=== PATIENT | female | born 1985 | race Caucasian/White ===

== ENCOUNTER 2022-10-26 10:26 | Emergency (ER) | payer OTHER, SELFPAY ==
[2022-10-26 10:34] VITALS: BP 147/78; PULSE 100; RESP 20; TEMP 36.8; O2SAT 98
[2022-10-26 10:40] VITALS: BP 147/78; PULSE 100; RESP 20; TEMP 36.8; O2SAT 98
--- NOTE | 2022-10-26 10:53 | ED.URI ---
HPI - URI/Sore Throat General Chief Complaint: Upper Respiratory Infection Stated Complaint: throat fever Time Seen by Provider: 10/26/22 10:53 Source: patient and RN notes reviewed History of Present Illness HPI Narrative: patient is a 36-year-old female who presents to the Urgent Care with complaints of a fever that started today and sore throat yesterday. Patient has been taking ibuprofen for the fever. Denies any body aches, cough, nausea, vomiting, headache or ill exposures. No other acute complaints. No acute distress noted. Patient aware of the plan of care. Some parts of this dictation were generated by voice recognition software and may contain typographical and/or grammatical inaccuracies. Related Data Home Medications Medication Instructions Recorded Confirmed No Home Medications 10/26/22 10/26/22 Allergies Allergy/AdvReac Type Severity Reaction Status Date / Time No Known Allergies Allergy Verified 10/26/22 10:39 Review of Systems Review of Systems: CONSTITUTIONAL: Reports a fever this morning EYES: Denies visual changes, redness, or discharge. ENT: Denies rhinorrhea, congestion, otalgia. Reports of sore throat and drainage CARDIOVASCULAR: Denies chest pain, palpitations, or edema. RESPIRATORY: Denies cough or dyspnea. GASTROINTESTINAL: Denies abdominal pain, nausea, vomiting, or diarrhea. GENITOURINARY: Denies dysuria or hematuria. SKIN: Denies rash or itching. MUSCULOSKELETAL: Denies back pain, joint pain, or myalgia. NEUROLOGIC: Denies headache, numbness, or weakness. All other systems reviewed are negative, except as documented in HPI. PMFSH Comments At the time of my signature, I reviewed and agree with the nursing past medical, surgical, social, and family history. There is no relevant family history pertinent to the patient complaint. Exam Narrative: GENERAL: This is a well-nourished, well-developed patient, in no apparent distress. HEAD: normocephalic, atraumatic. EYES: PERRL. Sclera clear/white. Vision is grossly intact. EARS: External ears normal, auditory canals clear and without drainage, TMs normal without perforation. Hearing grossly intact. NOSE: External nose normal with no obvious nasal discharge, nares without redness, no rhinorrhea. THROAT: Mucous membranes moist, mild erythema to posterior pharynx with moderate postnasal drainage. Absent tonsils. NECK: Neck supple, non-tender without lymphadenopathy CARDIOVASCULAR: Regular rate and rhythm without murmurs, gallops, or rubs. RESPIRATORY: Clear to auscultation. Breath sounds equal bilaterally. No wheezes, rales, or rhonchi. SKIN: warm, intact with no suspicious lesions or rash, good texture and turgor. NEURO: awake, alert, and oriented to person, place and time. There were no obvious focal neurologic abnormalities. EXTREMITIES: No clubbing, cyanosis, or edema. Course Course Level of Care: Express Care Visit Vital Signs Vital signs: Vital Signs Temperature 98.2 F 10/26/22 10:34 Pulse Rate 100 10/26/22 10:34 Respiratory Rate 20 10/26/22 10:34 Blood Pressure 147/78 H 10/26/22 10:34 Pulse Oximetry 98 10/26/22 10:34 Oxygen Delivery Room Air 10/26/22 10:34 Temperature 98.2 F 10/26/22 10:40 Pulse Rate 100 10/26/22 10:40 Respiratory Rate 20 10/26/22 10:40 Blood Pressure 147/78 H 10/26/22 10:40 Pulse Oximetry 98 10/26/22 10:40 Oxygen Delivery Room Air 10/26/22 10:40 reviewed- Patient is informed that they may have pre-hypertension or hypertension based on a blood pressure reading in the department. I recommend the patient call the primary care provider listed on their discharge instructions or a physician of their choice this week to arrange follow-up for further evaluation of possible pre-hypertension or hypertension. MDM - URI/Sore Throat MDM Narrative Medical decision making narrative: Due to the lack of resources, unable to complete a rapid strep and the facility. We
== END 2022-10-26 11:07 | disposition home or self-care (01) ==
PROVIDERS: Emergency Provider Nurse Practitioner Family; PCP Physician Assistant
DX: J02.0 Streptococcal pharyngitis (principal)
CPT/HCPCS: 87081; 87147; 99202; G0463

== ENCOUNTER 2025-01-29 11:20 | Emergency (ER) | payer OTHER, SELFPAY ==
--- OUTSIDE RECORDS SUMMARY | 2025-01-29 11:23 | XMS_ITS | Referral Summary ---
Author Organization [facility] Medical Office Building [address] Address [address] [place] [address] Care Team Providers Care Manager Bank Name Role Phone Uzair Morales Primary Care Provider [phone] Allergies No known active allergies Medications multivitamin capsule Take 1 capsule by mouth daily Active vitamin B complex capsule Take 1 capsule by mouth daily Active calcium carbonate-vitam in D3 500 mg(1,250mg) -400 unit chewable tablet Take 1 tablet by mouth daily Active naproxen (NAPROSYN) 500 mg tablet Take 1 tablet (500 mg total) by mouth 2 (two) times a day with meals 30 tablet 04/12/2024 Active Active Problems Problem Noted Date Diagnosed Date Upper respiratory infection 12/17/2022 Closed displaced fracture of proximal phalanx of right little finger 02/02/2022 Sprain of medial collateral ligament of left kne e 02/19/2021 Atypical squamous cells of u ndetermined significance (ASCUS) on Papanicolaou smear of cervix 12/01/2017 Overview (06/02/2024): Atyp squam cell of undet signfc cyto smr crvx (ASC-US);Recorded Elsewhere: No Location: [facility] Source: EHR Chronic: N Practice ID: [id number] Billable Time: 04:15:00 PM Low-risk human papillomaviru s (HPV) DNA detected in cervical specimen 11/10/2017 Overview (06/02/2024): Cervical low risk HPV DNA test positive;Recorded Elsewhere: No Location: [facility] Source: EHR Chronic: N Practice ID: [id number] Billable Time: 04:45:00 PM Obesity with body mass index 30 or greater 04/01 Overview (06/02/2024): Body mass index (BMI) 33.0-33.9, adult;Recorded Elsewhere: No Location: [facility] Source: EHR Chronic: N Practice ID: [id number] Billable Time: 06:00:00 PM Chronic depression 09/22/2016 Delivery normal 08/10/2013 Overview (06/02/2024): Normal delivery;Practice ID: [id number] Congenital malformation 04/07/2013 Overview (06/02/2024): screening for malformation using ultrasonics;Practice ID: [id number] Amenorrhea 02/15/2013 Overview (06/02/2024): AMENORRHEA;Practice ID: [id number] Social History Tobacco Use Types Packs/Day Years Used Date Smoking Tobacco: Never Smokeless Tobacco: Never AUDIT-C Answer Date Recorded Q1: How often do you have a drink containing alc ohol? Monthly or less 02/19/2021 Average Number of Drinks Not on file 021 Frequency of Binge Drinking Not on file 01/23 Personal Safety Answer Date Recorded Have you ever been in or are you currently in a harmful physical or emotional relationship or is someone making you feel afraid or unsafe? Denies 04/12/2024 Comments No Sex and Gender Information Value Date Recorded Sex Assigned at Not on file Legal Sex Female 2:19 PM [employer]VENUE Gender Identity Not on file Sexual Orientation Not on file Last Filed Vital Signs Vital Sign Reading Time Taken Comments Blood Pressure 99/52 04/12/2024 8:57 PM CDT Pulse 50 04/12/2024 8:57 PM CDT Temperature 36.4 C (97.6 F) 04/12/2024 6:47 PM CDT Respiratory Rate 16 04/12/2024 8:57 PM CDT Oxygen Saturation 98% 04/12/2024 8:57 PM CDT Inhaled Oxygen Concentration - - Weight 88 kg (194 lb) 04/12/2024 6:47 PM CDT Height 167.6 cm (5' 6 ) 04/12/2024 6:47 PM CDT Body Mass Index 31.31 04/12/2024 6:47 PM CDT Plan of Treatment Not on file Insurance [facility] H[facility]/PPO Address: [id number] [place] [address] [facility]PPO Address[facility] [address] [place] [address] [facility]/PPO Address: [facility] [id number] [place], [place] [id number] Care Teams Manager Bank Relationship Specialty Start Date End Date Uzair Morales PA [address] [place] [address] PCP - General 01/10/19
--- OUTSIDE RECORDS SUMMARY | 2025-01-29 11:23 | XMS_ITS | Data Portability ---
Author Organization [facility] L[facility] D Pak Address [address] [place] [address] Care Team Providers Care Test Architect Name Role Phone KERRY MORALES Primary Care Provider Assessment No assessment recorded. Plan of Treatment Reminders Order Date Submit Date Provider Last Modified By Organization Details Last Modified Time Details Appointments None recorded. Lab influenza virus A + B + SARS-CoV- 2 (COVID19) Ag panel, rapid IA, upper respirato ry specimen 2023 024 [facility] In-Office Order, Internal Use Only DO Not Attach Compendium DO Not Attach Compendium, Do Not Delete/merge, [id number] 11:48:48 rapid strep group A, throat 2022 023 shant In-Office Order, Internal Use Only DO Not Attach Compendium DO Not Attach Compendium, Do Not Delete/merge, [id number] 15:53:23 Referral None recorded. Procedures None recorded. Surgeries None recorded. Imaging None recorded. Medication Orders escitalop tete 20 mg tablet 2024 025 [facility] #[id number], [address], [place], [place], [id number], 5 12:54:55 azithromy luci 500 mg tablet 2024 025 [facility] #65708, [address], [place], [place], [id number], 5 12:53:43 amoxicill in 875 mg tablet 2023 025 [facility] #08289, [address], [place], [id number], 5 12:24:51 neomycin- polymyxin -dexameth 3.5 mg/mL-10, 000 unit/mL-0 .1% eye drops 2023 024 [facility] #81230, [address], [place], [id number], 4 11:25:21 amoxicill in 875 mg tablet 2022 023 [facility] #13960, [address], [place], [id number], 5 12:24:38 neomycin- polymyxin -dexameth 3.5 mg/mL-10, 000 unit/mL-0 .1% eye drops 2021 022 [facility] #[id number], [address], [place], [id number], 4 11:25:21 Patient TargetsNo targets recorded. Patient Instructions Encounter Date Encounter Id Patient Instructions Last Modified By Organization Details Last Modified Time 02/06/2023 [id number] strep throat: care instructions jnanney Not available 02/06/2023 15:54:10 A healthy lifestyle: care instructions jnanney Not available 02/06/2023 15:55:33 01/27/2024 [id number] A healthy lifestyle: care instructions jnanney Not available 01/27/2024 12:33:11 pinkeye: care instructions jnanney Not available 01/27/2024 12:33:11 05/16/2024 [id number] A healthy lifestyle: care instructions jnanney Not available 05/16/2024 11:47:04 upper respirator y infection (cold): care instructions jnanney Not available 05/16/2024 11:34:27 01/05/2025 [id number] A healthy lifestyle: care instructions jnanney Not available 01/05/2025 12:32:47 upper respirator y infection (cold): care instructions jnanney Not available 01/05/2025 12:32:47 sore throat: car e instructions jnanney Not available 01/05/2025 12:32:47 Reason for Referral None Reported. Results Created Date Observation Date Name Description Value Unit Range Abnormal Flag Note LastModifiedBy Organization Detail LastModifiedTime 02/07/2002/06/2023 rapid strep group A, throa t Strep positi ve Not Available In-Office Order Internal Use Only DO Not Attach Compendium DO Not Attach Compendium, Do Not Delete/merge, [id number] 02/06/2023 15:32:43 05/16/20 24 05/16/2024 influ kelvin virus A + B + SARS- CoV-2 (COVI D19) Ag panel , rapid IA, upper respi rator y speci men Flu A negati ve Not Available In-Office Order Internal Use Only DO Not Attach Compendium DO Not Attach Compendium, Do Not Delete/merge, [id number] 05/16/2024 11:34:20 05/16/2005/16/2024 influ kelvin virus A + B + SARS- CoV-2 (COVI D19) Ag panel , rapid IA, upper respi rator y speci men Flu B negati ve Not Available In-Office Order Internal Use Only DO Not Attach Compendium DO Not Attach Compendium, Do Not Delete/merge, [id number] 05/16/2024 11:34:20 05/16/2005/16/2024 influ kelvin virus A + B + SARS- CoV-2 (COVI D19) Ag panel , rapid IA, upper respi rator y speci men Rapid SARS CoV 2 Ag, QL IA, respiratory specimen negati ve Not Available In-Office Order Internal Use Only DO Not Attach Compendium DO Not Attach Compendium, Do Not Delete/merge, [id number] 05/16/2024 11:34:20 Result Notes None recorded. Problems Name Problem SNOMED Code Status Onset Date Resolution Date Notes Provider Name and Address Organization Details Recorded Time Upper respiratory infection 27214521 Active Kerry Morales PA-C Attn: Rell swain,[address] [facility], [place], [address], [facility] 5 15:15:15 Chronic depression 179975208 Active 2015 Kerry Morales PA-C Attn: Rell g,[address] [facility], [place], [address], [facility] 6 16:48:16 Problem Notes None recorded. Procedures Surgical History Date Name Laterality Status Provider Name and Address Organization Details Recorded Time 06/23/20 Date of Last Pap Smear completed Kenia Núñez [place] - [facility] 10/29/2022 16:13:14 Tonsillectomy completed Kenia Pastrana [place] - [facility] 03/06/2015 15:06:31 Imaging Results None recorded. Procedure Notes None recorded. Medical Equipment None Reported. Allergies No known drug allergies Medications Name Sig Start Date Stop Date Status Note LastModified by Organization Details LastModified Time buspirone 5 mg tablet TAKE 1 TABLET BY MOUTH TWICE DAILY 01/26 completed not taking Not Available Not Available Not Available bupropion HCl SR 150 mg tablet,12 hr sustained- release Take 1 tablet twice a day by oral route for 30 days. 05/11 completed Not Available Not Available Not Available metronidaz ole 0.75 % (37.5 mg/5 gram) vaginal gel INSERT ONE APPLICAT ORFUL VAGINALL Y AT BEDTIME FOR 5 NIGHTS 02/06 completed Not Available Not Available Not Available metronidaz ole 500 mg tablet TK 1 T PO Q 12 H FOR 7 DAYS 04/30 completed Not Available Not Available Not Available amoxicilli n 500 mg tablet 02/06 completed Not Available Not Available Not Available amoxicilli n 875 mg tablet TAKE 1 TABLET BY MOUTH EVERY 12 HOURS FOR 10 DAYS 01/05 completed Not Available Not Available Not Available citalopram 20 mg tablet TAKE 1 TABLET BY MOUTH EVERY DAY 03/30 completed Not Available Not Available Not Available ciprofloxa luci 0.3 % eye drops 3 drops to affected eye tid for 7 days 03/30 completed Not Available Not Available Not Available cephalexin 500 mg capsule Take 1 capsule every 8 hours by oral route for 10 days. 11/04 completed Not Available Not Available Not Available neomycin-p olymyxin-d exameth 3.5 mg/mL-10,0 00 unit/mL-0. 1% eye drops INSTILL 1 DROP INTO AFFECTED EYE(S) BY OPHTHALM IC ROUTE EVERY 3-4 HOURS 05/16 completed Not Available Not Available Not Available Cipro 500 mg tablet Take 1 tablet every 12 hours by oral route for 10 days. 04/30 completed Not Available Not Available Not Available sertraline 50 mg tablet Take 1 tablet every day by oral route for 30 days. 04/13 completed Not Available Not Available Not Available ipratropiu m bromide 21 mcg (0.03 %) nasal spray USE 2 SPRAYS IN EACH NOSTRIL THREE TIMES DAILY active Not Available Not Available No t Available naproxen 500 mg tablet 05/16 completed Not Available Not Available Not Available amoxicilli n 875 mg-potassi um clavulanat e 125 mg tablet TAKE 1 TABLET BY MOUTH IN THE MORNING AND AT BEDTIME FOR 7 DAYS 02/06 completed Not Available Not Available Not Available NuvaRing 0.12 mg-0.015 mg/24 hr vaginal 02/06 completed Not Available Not Available Not Available azithromyc in 500 mg tablet TAKE 1 TABLET BY MOUTH EVERY DAY FOR 3 DAYS active Not Available Not Available No t Available escitalopr am 20 mg tablet TAKE 1 TABLET BY MOUTH EVERY DAY active Not Available Not Available No t Available Vitals Date Recorded Body weight Body temperature Oxygen saturation Oxygen saturation in Arterial blood by Pulse oximetry Heart rate Body height Body mass index (BMI) Systolic blood pressure Diastolic blood pressure Provider Name and Address Organization Details Last Updated DateTime 2 47044.1 7 g 98.4 [degF] 98 % 98 % 85 /min 167.64 cm 34.4 kg/m2 110 mm[Hg] 70 mm[Hg] Kenia pitt [place] - [facility] 2 16:12:45 Date Recorded Body height Body mass index (BMI) Body weight Body temperature Oxygen saturation Oxygen saturation in Arterial blood by Pulse oximetry Heart rate Systolic blood pressure Diastolic blood pressure Provider Name and Address Organization Details Last Updated DateTime 3 167.64 cm 34.2 kg/m2 02031.1 5 g 98 [degF] 97 % 97 % 77 /min 114 mm[Hg] 80 mm[Hg] Maddison Roy MA [facility] 3 15:11:24 Date Recorded Body height Body mass index (BMI) Body weight Heart rate Oxygen saturation Oxygen saturation in Arterial blood by Pulse oximetry Systolic blood pressure Diastolic blood pressure Provider Name and Address Organization Details Last Updated DateTime 4 167.64 cm 31.5 kg/m2 11511.6 1 g 59 /min 99 % 99 % 105 mm[Hg] 71 mm[Hg] Maame Hernandez MA [facility] 4 12:04:21 Date Recorded Body height Body mass index (BMI) Body weight Oxygen saturation Oxygen saturation in Arterial blood by Pulse oximetry Heart rate Body temperature Systolic blood pressure Diastolic blood pressure Provider Name and Address Organization Details Last Updated DateTime 4 167.64 cm 32 kg/m2 25343.7 3 g 97 % 97 % 85 /min 99.6 [degF] 107 mm[Hg] 73 mm[Hg] Lucía Torres MA [facility] 4 11:27:08 Date Recorded Body height Body mass index (BMI) Body weight Oxygen saturation Oxygen saturation in Arterial blood by Pulse oximetry Heart rate Respiratory rate Body temperature Systolic blood pressure Diastolic blood pressure Provider Name and Address Organization Details Last Updated DateTime 5 167.64 cm 31.6 kg/m2 22084.1 g 98 % 98 % 81 /min 16 /min 98.5 [degF] 116 mm[Hg] 78 mm[Hg] Lucía Torres MA [facility] 5 12:26:53 Social History Question Answer Notes LastModified by Organizat ion Details LastModified Time Tobacco Smoking Status Never Smoker Kenia Pastrana MA [facility], [facility] 03/06/2015 15:06:31 What Is Your Level Of Alcohol Consumption? Occasional Information not available 01/10/2019 Are You Blind Or Do You Have Difficulty Seeing? Yes Glasses Information not available 02/06/2023 What Is Your Level Of Caffeine Consumption? Heavy [email or web address] Information not available 10/29/2022 How Much Tobacco Do You Chew? None Information not available 01/10/2019 In The 14 Days Before Symptom Onset, Have You Had Close Contact With A Laboratory-confi rmed COVID-19 While That Case Was Ill? No Information not available 04/30/2021 In The 14 Days Before Symptom Onset, Have You Had Close Contact With A Person Who Is Under Investigation For COVID-19 While That Person Was Ill? No Information not available 04/30/2021 Have You Been To An Area Known To Be High Risk For COVID-19? No Information not available 04/30/2021 Are You Currently Employed? Yes Information not available 04/30/2021 Are You Deaf Or Do You Have Serious Difficulty Hearing? No Information not available 05/14/2021 What Type Of Diet Are You Following? REGULAR [employer] [facility] Information not available 02/06/2023 Which Illicit Or Recreational Drugs Have You Used? 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 No Information not available 05/14/2021 What Was The Date Of Your Most Recent Tobacco Screening? 01/05/2025 Information not available 01/05/2025 What Is Your Relationship Status? Information not available 04/30/2021 Do You Use Your Seat Belt Or Car Seat Routinely? Yes Information not available 05/14/2021 Do You Have Smoke And Carbon Monoxide Detectors In Your Home? Yes Information not available 04/30/2021 Are You Passively Exposed To Smoke? Yes Information not available 04/30/2021 How Much Tobacco Do You Smoke? No Information not available 05/19/2019 Do You Feel Stressed (tense, Restless, Nervous, Or Anxious, Or Unable To Sleep At Night)? [id number] Information not available 02/06/2023 Do You Use Any Illicit Or Recreational Drugs? No Information not available 04/30/2021 Has Tobacco Cessation Counseling Been Provided? No Information not available 05/19/2019 On What Date Was Tobacco Cessation Counseling Provided? 01/05/2025 Information not available 01/05/2025 How Many Years Have You Smoked Tobacco? 0 Information not available 05/19/2019 Do You Or Have You Ever Used Any Other Forms Of Tobacco Or Nicotine? No Information not available 04/30/2021 Sex: Female Functional Status Question Answer Note LastModified by Organizat ion Details LastModified Time Are you able to care for yourself? Yes Information not available 04/30/2021 What is your exercise level? Moderate 2 - 3 x's weekly Information not available 02/06/2023 Mental Status None recorded. Family History Relationship Description Onset Age of this Age Resolved Age Notes LastModified by Organization Details LastModified Time Mother Depressive disorder [email or web address] Not available 2014 15:06:31 Mother Disorder of thyroid gland jweichert Not available 2014 15:06:31 Sister Migraine jweichert Not availabl e 03/06/2015 15:06:31 Medical History Condition Response Coronary Artery Disease N Other N Atrial Fibrillation N High Blood Pressure N Depression Y COPD N Blood Clots N Anxiety Disorder N Muscle, Joint, or Bone Problems N Acid Reflux (GERD) N Cancer N Stroke N Headaches Y Kidney or Bladder Problems N Skin Problems N Asthma N Allergies Y Hepatitis N High Cholesterol N Liver Disease N Thyroid Problems N GI Problems N Anemia N Heart Attack (NV) N Diabetes N Seizures/Epilepsy N Heart Failure N Osteoporosis N Gynecological History Statement/Question Response Date of Last Pap Smear 06/23/2022 Date of LMP 05/10/2024 Obstetrics History GPAL:G 0 P 0 0 0 0 Immunizations Vaccine Type Date Status Note Provider Nam e and Address Organization Details Recorded Time influenza, unspecified formulation 8 completed Not Available [facility] 10/26/2022 12:18:28 Tdap 3 completed Not Available [facility] 10/26/2022 12:18:28 COVID-19, mRNA, LNP-S, PF, 100 mcg/0.5mL dose or 50 mcg/0.25mL dose 1 completed Not Available [facility] 10/26/2022 12:18:28 COVID-19, mRNA, LNP-S, PF, 100 mcg/0.5mL dose or 50 mcg/0.25mL dose 1 completed Not Available [facility] 10/26/2022 12:18:28 Past Encounters Encounter ID Performer Location Encounter Start Date Encounter Closed Date Diagnosis/Indication Diagnosis SNOMED-CT Code Diagnosis ICD10 Code Diagnosis Note [id number] Lexis Torres [facility] [address] [place] [address] 03/06/2015 14:58:48 03/06/2015 15:21:12 Upper respiratory infection 21520663 [id number] Kerry Morales PA-C [facility] [address] [place] [address] 09/22/2016 15:15:52 09/22/2016 16:57:02 Chronic depression 114014621 F34.1 [id number] Kerry Morales PA-C [facility] [address] [place] [address] 12/31/2017 16:34:50 12/31/2017 17:51:36 Acute maxillary sinusitis 24511635 J01.01 [id number] Kerry Morales PA-C [facility] [address] [place] [address] 02/08/2018 15:15:44 02/08/2018 16:35:40 Conjunctivitis of bilateral eyes caused by bacteria 1609960326 4082951 H10.023 Chronic depression 97972 0009 F34.[id number] MA [facility] [address] [place] [address] 03/09/2018 18:34:51 03/09/2018 19:40:38 Chronic depression 851685713 F34.1 [id number] Kerry Morales PA-C [facility] [address] [place] [address] 03/23/2018 18:09:47 03/23/2018 19:20:50 Chronic depression 257228141 F34.1 [id number] GUTIERREZ [facility] [address] [place] [address] 03/30/2018 18:31:04 03/30/2018 19:42:50 Chronic depression 500956108 F34.1 [id number] Kerry Morales PA-C [facility] [address] [place] [address] 04/13/2018 18:35:12 04/13/2018 19:12:19 Chronic depression 059104866 F34.1 [id number] Kerry Morales PA-C [facility] [address] [place] [address] 04/27/2018 18:26:30 04/27/2018 19:56:02 Chronic depression 487857292 F34.1 [id number] Kerry Morales PA-C [facility] [address] [place] [address] 05/11/2018 18:18:59 05/11/2018 18:42:15 Chronic depression 332109472 F34.1 [id number] Kerry Morales PA-C [facility] [address] [place] [address] 08/17/2018 18:33:36 08/17/2018 18:51:18 Chronic depression 716010293 F34.1 [id number] Kerry Morales PA-C [facility] [address] [place] [address] 01/10/2019 10:00:03 01/10/2019 11:01:43 Elbow joint - painful on movement 530998709 M25.522 Adult heal th examination 274862386 Z00.00 [id number] Kerry Morales PA-C 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 [address] [place] [address] 05/19/2019 14:37:55 05/19/2019 16:12:15 Acute pharyngitis 207191343 J02.0 [id number] Kerry Morales PA-C [facility] [address] [place] [address] 11/04/2019 16:00:03 11/09/2019 11:27:30 Upper respiratory infection 84960624 J01.01 [id number] Kerry Morales PA-C 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 [address] [place] [address] 05/14/2021 17:46:14 05/15/2021 22:37:19 Chronic depression 381597762 F34.1 [id number] Kerry Morales PA-C [facility] [address] [place] [address] 10/29/2022 15:56:19 10/29/2022 16:29:32 Acute conjunctivitis of right eye 9778933875 46808 H10.31 [id number] Kerry Morales PA-C [facility] [address] [place] [address] 02/06/2023 14:53:12 02/11/2023 11:45:15 Viral syndrome 219465942 B34.9 Streptococ joan sore throat 65460893 J02.0 Overweight 078619907 E66 .3 [id number] Kerry Morales PA-C [facility] [address] [place] [address] 01/27/2024 11:52:13 02/01/2024 15:33:55 Bacterial conjunctivitis 918606855 H10.011 Overweight 139316837 E66 .3 [id number] Kerry Morales PA-C [facility] [address] [place] [address] 05/16/2024 11:13:11 05/19/2024 19:50:05 Upper respiratory infection 72206659 J01.01 Streptococ joan sore throat 82296844 J02.0 Overweight 981295119 E66 .3 [id number] GUTIERREZ [facility] [address] [place] [address] 01/05/2025 12:11:20 01/09/2025 15:08:33 Upper respiratory infection 76807489 J01.01 Acute pharyngitis 743578 003 J02.0 Overweight 076895942 E66 .3 Chronic depression 72042 0009 F34.1 Health Concerns Section Related Observation LastModified by Organization Detai ls LastModified Time None Recorded Concern Status LastModified by Organization Details LastModified Time None Recorded Advance Directives Directive None Recorded Payers Encounter Date Sequence Insurance Name Policy Number Policy Baca Covered Member ID Baca Member ID Guarantor Name 10/29/2022 1 [facility] [id number] Andressa Pace [id number] Andressa Pace 02/06/2023 1 [facility] [id number] Andressa Pace [id number] Andressa Pace 01/27/2024 1 [facility] [id number] Andressa Pace [id number] Andressa Pace 05/16/2024 1 [facility] [id number] Andressa Pace [id number] Andressa Pace 01/05/2025 1 [facility] [id number] Andressa Pace [id number] Andressa Pace Notes Date Note Type Note Provider Name and Address Organization Details Recorded Time 10/29/2022 text/html has pink eye on top of strep Kerry Morales PA-C Attn: Accounting,[address] [place], [address], [facility] 10/29/2022 16:24:46 02/06/2023 text/html sore throat for 3 days...strep test going right now Kerry Morales PA-C Attn: [address]ing,[address] [place], [address], [facility] 02/06/2023 15:56:11 01/27/2024 text/html rt eye itchy somewhat swollen discharge...kate le better today... Kerry Morales PA-C Attn: Accounting,[address] [place], [address], [facility] 01/27/2024 12:33:42 05/16/2024 text/html has started with aches and chills and fever... Kerry Morales PA-C Attn: Accounting,[address] [facility], [place], [address], [facility] 05/16/2024 11:47:50 01/05/2025 text/html daughter had flu twice..she developed flu symptoms ...no treatment..now has very sore throat...also would like to resume lexapro Keryr Morales PA-C Attn: Accounting,[address] [facility], [place], [address], [facility] 01/05/2025 12:55:27 OBGyn Episode No OBEpisode recorded.
--- OUTSIDE RECORDS SUMMARY | 2025-01-29 11:23 | XMS_ITS | Data Portability ---
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 Patient will come back in a year unless there are new symptoms. [email or web address] Not available 10/11/2020 13:44:56 04/10/2022 04/10/2022 Annual gynecological exam performed. Patient will come back in a year unless there are new symptoms. Not available 04/10/2022 16:23:03 07/29/2024 07/29/2024 Annual gynecological exam performed. Patient will come back in a year unless there are new symptoms. [email or web address] Not available 07/29/2024 15:46:54 Plan of Treatment Reminders Order Date Submit Date Provider Last Modified By Organization Details Last Modified Time Details Appointments None recorded. Lab HbA1c (hemoglobi n A1c), blood 2021 [facility] (Lab), [address], [place], [address], 04:55:11 vitamin D, 25-hydroxy , total, serum 2021 [facility] (Lab), [address], [place], [address], 04:55:15 lipid panel, blood 2021 [facility] (Lab), [address], [place], [address], 04:55:12 CMP, serum or plasma 2021 022 [facility] (Lab), [address], [place], [address], 04:55:13 CBC w/ auto diff 2021 [facility] (Lab), [address], [place], [address], 04:55:10 TSH, serum or plasma 2021 [facility] (Lab), [address], [place], [address], 04:55:14 Referral None recorded. Procedures None recorded. Surgeries None recorded. Imaging None recorded. Medication Orders NuvaRing 0.12 mg-0.015 mg/24 hr vaginal 2019 020 [id number], [address], [place], [id number], 16:24:47 Patient TargetsNo targets recorded. Patient InstructionsNo instructions recorded. Reason for Referral None Reported. Results Created Date Observation Date Name Description Value Unit Range Abnormal Flag Note LastModifiedBy Organization Detail LastModifiedTime 10/11/20 20 10/15/2020 pap, LB Pap test thin prep Negati ve for Intrae pithel ial Lesion or Malign acacia normal ACCES ADELA #: [id number] Sourc e: Cervi kimberlee/E ndoce rvica l LMP: 09/11 Date Taken : 10/11 Speci men Type: ThinP rep Vial Date Repor pierre: 10/15 Clini kimberlee Data: Cytot ech: Samuel Gonzalez r, CT( CP) Date Repor pierre: 10/13 Speci men Adequ acy: Satis facto ry for evalu ation Endoc ervic al/tr ansfo rmati on zone compo nent prese nt Gener al Categ oriza tion: NEGAT RUCHI FOR INTRA EPITH ELIAL LESRERE N OR MALFARA ERWINCY Inter preta tion/ Resul t: Shift in yolanda sugge stive of bacte rial vagin osis This speci men has been diego zed by the ThinP rep Imagi ng Syste m, an inter activ e compu ter syste m which prabha ts the lab in the scree sara of ThinP rep Pap Test slide s. Follo wing imagi ng, the slide was revie wed by a Cytot echno logis t and/o r Patho logis t. D N A A S S A Y S R E P O R T TEST NAME RESUL TS ----- ---- ----- -- HPV High Risk Norma leigh (TMA) ThinP rep Vial The human papil lomav irus (HPV) High Risk Norma leigh is an FDA-a pprov ed in-vi tro ampli fied nucle ic acid test for the quali tativ e detec tion of E6/E7 viral mRNA. Resul ts shoul d be corre lated with patie nt prese ntati on, histo ry, cervi kimberlee cytol ogy and other clini kimberlee and labor atory findi ngs. See https ://TransGaming/s ites/ defemperatriz lt/fi les/2 018-0 3/AW- 38448 _002_ 01.pd f for furth er infor isaias n. Test perfo rmed by [facility] d/b/a [facility], [address], [facility] [place] [address] , Abril Lizarraga ra, DO, Labor atory Direc tor. HPV High Risk *HPV NOT DETEC PIERRE (TYPE S 16, 18, 31, 33, 35, 39, 45, 51, 52, 56, 58, 59, 66, 68) *HPV: The human papil lomav irus (HPV) High Risk Norma leigh is an FDA-a pprov ed in-vi tro ampli fied nucle ic acid test for the quali tativ e detec tion of E6/E7 viral mRNA. Resul ts shoul d be corre lated with patie nt prese ntati on, histo ry, cervi kimberlee cytol ogy and other clini kimberlee and labor atory findi ngs. See https ://[employer]aming/s corwin/ candi lt/fi les/2 018-0 3/AW- 40709 _002_ 01.pd f for furth er infor isaias n. Test perfo rmed by [facility]/b/a [facility], [address], [place] [address] , Abril Lizarraga ra, DO, [facility] atorPerficient Dire tor. End of Repor t Techn ical servi carlos provi ded by [facility] iatInventarium.[facility], d/b/a [facility], [address] [place] [address] Ruperto Kuo MD, [facility]. Case revie wed and diagn osis rende red at [facility], d/b/a [facility], [address] [place] [address] Ruperto Kuo MD, [facility]. CONFI DENTI AL Not Available [facility] ([facility]) [address], [place], [address], 10/15/2020 13:57:55 10/11/20 20 10/15/2020 HPV DNA, high- risk HPV high risk NOT DETECT ED normal Not Available [facility] ([facility]) [address], [place], [address], 10/15/2020 13:57:55 04/10/20 22 04/10/2022 IMAGE GUIDE D PAP AND HPV REGAR DLESS image guided Pap, HPV regardless of Pap result SEE RESULT S BELOW CASE REPOR T: Cytol ogy Gynec ologi kimberlee Repor t Case: [id number] Autho joselyn swain Provi wesly: Aruna nichols , Geri Giordano cted: 04/10 1700 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 Shift in yolanda sugge stive of bacte rial vagin osis. Elect evan nikitaindira nery d by Karuna Rodriguez ret, CT on 2021 at 12:51 PM ----- ----- ----- ----- ----- ----- ----- ----- ----- ----- ----- ----- ----- ----- ----- ----- ----- ---- HPV RESUL TS: HPV mRNA E6/E7 : No HPV mRNA Detec pierre NOTE: This high risk HPV mRNA assay detec ts fourt een high- risk HPV types (16, 18, 31, 33, 35, 39, 45, 51, 52, 56, 58, 59, 66, 68) witho ut diffe renti ation . COMME NT: Note: This speci men was revie wed by a Cytot echno logis t and/o r Patho logis t (as indic ated in this repor t) after evalu ation using the Thinp rep Imagi ng Syste m. CLINI KIMBERLEE INFOR MATIO N: Menst rual Statu s: LMP (if appli cable ): Clini kimberlee Histo ry/Pr eviou s Pap: Type of Neopl paz (if appli cable ): Signi fican t Clini kimberlee Findi ngs: Other Histo ry: Hormo shana (if appli cable ): PAP EDUCA INDIO L NOTE: The Pap Test is a scree sara test with an inher ent false negat ruchi rate. Liqui d-bas ed sampl ing may decre ase, but will not elimi franc, false negat ruchi resul ts. A negat ruchi resul t does not precl ude the prese nce and/o r devel opmen t of disea se, since the prese nce of abnor mal cells in the sampl e depen ds on the locat ion of the lesio n and sampl ing techn ique. Tigist nued regul ar scree sara is the best metho d of cance r preve ntion . If repor pierre cytol ogic findi ng do not corre late with physi kimberlee and/o r histo rical findi ngs, furth er inves tigat ion is recom everett d, as clini linda florez nted. Not Available [facility] (Lab) [address], [place], [address], 04/16/2022 13:53:52 04/16/20 22 04/16/2022 CBC W/DIF F WBC 6.4 10'3/ uL 3.6-10 .2 Not Available [facility] (Lab) [address], [place], [address], 04/17/2022 04:55:10 04/16/20 22 04/16/2022 CBC W/DIF F RBC 4.70 10'6/ uL (based on docume nted legal sex) 4.10-5 .30 Not Available [facility] (Lab) [address], [place], [address], 04/17/2022 04:55:10 04/16/20 22 04/16/2022 CBC W/DIF F HGB 13.8 g/dL (based on docume nted legal sex) 11.9-1 5.8 Not Available [facility] (Lab) [address], [place], [address], 04/17/2022 04:55:10 04/16/20 22 04/16/2022 CBC W/DIF F HCT 43.4 % (based on docume nted legal sex) 37.4-4 8.3 Not Available [facility] (Lab) [address], [place], [address], 04/17/2022 04:55:10 04/16/20 22 04/16/2022 CBC W/DIF F MCV 93.0 fL 82.0-9 9.0 Not Available [facility] (Lab) [address], [place], [address], 04/17/2022 04:55:10 04/16/20 22 04/16/2022 CBC W/DIF F MCH 30.0 pg 27.0-3 3.0 Not Available [facility] (Lab) [address], [place], [address], 04/17/2022 04:55:10 04/16/20 22 04/16/2022 CBC W/DIF F MCHC 32.0 g/dL 32.0-3 6.0 Not Available [facility] (Lab) [address], [place], [address], 04/17/2022 04:55:10 04/16/20 22 04/16/2022 CBC W/DIF F RDW 13.0 % 11.0-1 5.0 Not Available [facility] (Lab) [address], [place], [address], 04/17/2022 04:55:10 04/16/20 22 04/16/2022 CBC W/DIF F plt 347 10'3/ uL 150-45 0 Not Available [facility] (Lab) [address], [place], [address], 04/17/2022 04:55:10 04/16/20 22 04/16/2022 CBC W/DIF F MPV 10.9 fL 9.8-12 .7 Not Available [facility] (Lab) [address], [place], [address], 04/17/2022 04:55:10 04/16/20 22 04/16/2022 CBC W/DIF F NRBC's 0.00 % 0 Not Available [facility] (Lab) [address], [place], [address], 04/17/2022 04:55:10 04/16/20 22 04/16/2022 CBC W/DIF F absolute NRBCs 0.0 10'3/ uL 0 Not Available [facility] (Lab) [address], [place], [address], 04/17/2022 04:55:10 04/16/20 22 04/16/2022 CBC W/DIF F neutrophils 62.0 % 37.0-7 2.0 Not Available [facility] (Lab) [address], [place], [address], 04/17/2022 04:55:10 04/16/20 22 04/16/2022 CBC W/DIF F lymphocytes 28.0 % 16.0-4 8.0 Not Available [facility] (Lab) [address], [place], [address], 04/17/2022 04:55:10 04/16/20 22 04/16/2022 CBC W/DIF F monocytes 7.0 % 4.0-14 .0 Not Available [facility] (Lab) [address] [place], [address], 04/17/2022 04:55:10 04/16/20 22 04/16/2022 CBC W/DIF F eosinophils 2.0 % 0.0-9. 0 Not Available [facility] (Lab) [address] [place], [address], 04/17/2022 04:55:10 04/16/20 22 04/16/2022 CBC W/DIF F basophils 1.0 % 0.0-2. 0 Not Available [facility] (Lab) [address] [place], [address], 04/17/2022 04:55:10 04/16/20 22 04/16/2022 CBC W/DIF F immature granulocytes 0.0 % no define d refere nce range Not Available [facility] (Lab) [address], [place], [address], 04/17/2022 04:55:10 04/16/20 22 04/16/2022 CBC W/DIF F absolute neutrophils 4.0 10'3/ uL 1.1-6. 0 Not Available [facility] (Lab) [address], [place], [address], 04/17/2022 04:55:10 04/16/20 22 04/16/2022 CBC W/DIF F absolute lymphocytes 1.8 10'3/ uL 0.7-3. 4 Not Available [facility] (Lab) [address], [place], [address], 04/17/2022 04:55:10 04/16/20 22 04/16/2022 CBC W/DIF F absolute monocytes 0.5 10'3/ uL 0.3-1. 0 Not Available [facility] (Lab) [address], [place], [address], 04/17/2022 04:55:10 04/16/20 22 04/16/2022 CBC W/DIF F absolute eosinophils 0.1 10'3/ uL 0.0-0. 6 Not Available [facility] (Lab) [address] [place], [address], 04/17/2022 04:55:10 04/16/20 22 04/16/2022 CBC W/DIF F absolute basophils 0.1 10'3/ uL 0.0-0. 1 Not Available [facility] (Lab) [address] [place], [address], 04/17/2022 04:55:10 04/16/20 22 04/16/2022 CBC W/DIF F absolute immature granulocytes 0.00 10'3/ uL 0.00-0 .10 2021 2:25 AM: P indic ates parti al resul ts on a panel have been relea sed. Addit ional resul ts will follo w. 2021 2:26 AM: This resul t has been final verif ied. No addit ional or mazariegos ed resul ts are expec pierre. Not Available [facility] (Lab) [address], [place], [address], 04/17/2022 04:55:10 04/16/20 22 04/16/2022 HEMOG LOBIN A1C hemoglobin A1C 5.3 % 0-5.6 The Ameri can Diabe radha Assoc iatio n recom mends that a prima ry goal of thera py shoul d be a HBA1C of < 7% and that physi cians shoul d reeva luate the treat ment regim en in patie nts with HBA1C value s consi stent ly > 8%. <5.7% Elizabeth l 5.7 - 6.4% Incre ased risk for diabe radha >=6.5 % Diagn ostic of diabe radha <7.0% Goal of thera py >8.0% Actio n sugge sted Not Available [facility] (Lab) [address], [place], [address], 04/17/2022 04:55:11 04/16/20 22 04/16/2022 LIPID PANEL ,AMA (LDL- CALC) total cholesterol 181 mg/dL 0-199 Not Available [facility] (Lab) [address], [place], [address], 04/17/2022 04:55:12 04/16/20 22 04/16/2022 LIPID PANEL ,AMA (LDL- CALC) triglyceride s 73 mg/dL 0.00-1 50.00 NCEP Refer ence Value s for Trigl yceri jane: Elizabeth l: <150 mg/dL Borde rline High: 150 - 199 mg/dL High: 200 - 499 mg/dL Very High: >/= 500 mg/dL Not Available [facility] (Lab) [address], [place], [address], 04/17/2022 04:55:12 04/16/20 22 04/16/2022 LIPID PANEL ,AMA (LDL- CALC) HDL cholesterol 45 mg/dL >40 Not Available [facility] (Lab) [address], [place], [address], 04/17/2022 04:55:12 04/16/20 22 04/16/2022 LIPID PANEL ,AMA (LDL- CALC) LDL cholesterol 121 mg/dL 0-99 high Cutof f value s recom everett d by the Natio nal Reba stero l Educa tion Progr am: LDAAN ABLE: Reba stero l <200 mg/dL LDL <100 mg/dL BORDE RLINE : Reba stero l 200-2 39 mg/dL LDL 101-1 59 mg/dL HIGHE R RISK: Reba stero l >240 mg/dL LDL >160 mg/dL , HDL <40 mg/dL Not Available [facility] (Lab) [address], [place], [address], 04/17/2022 04:55:12 04/16/20 22 04/16/2022 LIPID PANEL ,AMA (LDL- CALC) non-HDL cholesterol 136 mg/dL no refere nce range A reaso nable goal for non-H DL reba stero l is one that is 30 mg/dL highe r than the LDL reba stero l goal. Not Available [facility] (Lab) [address], [place], [address], 04/17/2022 04:55:12 04/16/20 22 04/16/2022 LIPID PANEL ,AMA (LDL- CALC) chol/HDL ratio 4.0 . 0.0-5. 0 Not Available [facility] (Lab) [address], [place], [address], 04/17/2022 04:55:12 04/16/20 22 04/16/2022 CMP(C OMPRE HENSI VE METAB OLIC PANEL ) sodium 141 mmol/ L 133-14 6 Not Available [facility] (Lab) [address], [place], [address], 04/17/2022 04:55:13 04/16/20 22 04/16/2022 CMP(C OMPRE HENSI VE METAB OLIC PANEL ) potassium 4.6 mmol/ L 3.5-5. 1 Not Available [facility] (Lab) [address], [place], [address], 04/17/2022 04:55:13 04/16/20 22 04/16/2022 CMP(C OMPRE HENSI VE METAB OLIC PANEL ) chloride 103 mmol/ L 98-107 Not Available [facility] (Lab) [address], [place], [address], 04/17/2022 04:55:13 04/16/20 22 04/16/2022 CMP(C OMPRE HENSI VE METAB OLIC PANEL ) carbon dioxide 27 mmol/ L 21-31 Not Available [facility] (Lab) [address], [place], [address], 04/17/2022 04:55:13 04/16/20 22 04/16/2022 CMP(C OMPRE HENSI VE METAB OLIC PANEL ) anion gap 11 mmol/ L 4-13 Not Available [facility] (Lab) [address] [place], [address], 04/17/2022 04:55:13 04/16/20 22 04/16/2022 CMP(C OMPRE HENSI VE METAB OLIC PANEL ) blood urea nitrogen 6 mg/dL 7-25 low Not Available [facility] (Lab) [address] [place], [address], 04/17/2022 04:55:13 04/16/20 22 04/16/2022 CMP(C OMPRE HENSI VE METAB OLIC PANEL ) creatinine 0.85 mg/dL 0.60-1 .30 Not Available [facility] (Lab) [address] [place], [address], 04/17/2022 04:55:13 04/16/20 22 04/16/2022 CMP(C OMPRE HENSI VE METAB OLIC PANEL ) egfrcr (CKD-epi 2020) >90 mL/mi n/1.7 3_m2 >=60 Not Available [facility] (Lab) [address], [place], [address], 04/17/2022 04:55:13 04/16/20 22 04/16/2022 CMP(C OMPRE HENSI VE METAB OLIC PANEL ) calcium 9.6 mg/dL 8.3-10 .5 Not Available [facility] (Lab) [address], [place], [address], 04/17/2022 04:55:13 04/16/20 22 04/16/2022 CMP(C OMPRE HENSI VE METAB OLIC PANEL ) glucose 90 mg/dL 70-100 Not Available [facility] (Lab) [address], [place], [address], 04/17/2022 04:55:13 04/16/20 22 04/16/2022 CMP(C OMPRE HENSI VE METAB OLIC PANEL ) protein, total 7.1 g/dL 6.4-8. 3 Not Available [facility] (Lab) [address], [place], [address], 04/17/2022 04:55:13 04/16/20 22 04/16/2022 CMP(C OMPRE HENSI VE METAB OLIC PANEL ) albumin 4.3 g/dL 3.5-5. 0 Not Available [facility] (Lab) [address], [place], [address], 04/17/2022 04:55:13 04/16/20 22 04/16/2022 CMP(C OMPRE HENSI VE METAB OLIC PANEL ) ALT 48 units /L 9-43 high Not Available [facility] (Lab) [address], [place], [address], 04/17/2022 04:55:13 04/16/20 22 04/16/2022 CMP(C OMPRE HENSI VE METAB OLIC PANEL ) alkaline phosphatase 67 units /L 34-104 Not Available [facility] (Lab) [address], [place], [address], 04/17/2022 04:55:13 04/16/20 22 04/16/2022 CMP(C OMPRE HENSI VE METAB OLIC PANEL ) AST 27 units /L 13-39 Not Available [facility] (Lab) [address], [place], [address], 04/17/2022 04:55:13 04/16/20 22 04/16/2022 CMP(C OMPRE HENSI VE METAB OLIC PANEL ) bilirubin, total 0.6 mg/dL 0.2-1. 2 Not Available [facility] (Lab) [address], [place], [address], 04/17/2022 04:55:13 04/16/20 22 04/16/2022 TSH, REFLE X FREE T4 TSH 0.65 uIU/m L 0.30-5 .33 Not Available [facility] (Lab) [address], [place], [address], 04/17/2022 04:55:14 04/16/20 22 04/16/2022 VITAM IN D, 25-OH (TOTA L D2/D3 ) vitamin D, 25-hydroxy, total 51.3 NG/mL 30-80 NOTE: Defic iency : <20 ng/mL Insuf ficie ncy: 20-29 ng/mL Optim um Level : 30-80 ng/mL Possi ble Toxic ity: >80 ng/mL Most patie nts with toxic ity have level s >150 ng/mL . Not Available [facility] (Lab) [address] [place], [address], 04/17/2022 04:55:15 07/29/20 24 07/29/2024 IMAGE GUIDE D PAP AND HPV REGAR DLESS image guided Pap, HPV regardless of Pap result SEE RESULT S BELOW CASE REPOR T: Cytol ogy Gynec ologi kimberlee Repor t Case: [id number] Autho joselyn swain Provi wesly: Kodi Smiley MD Colle cted: 07/29 1555 Order ing Locat ion: [place] Patho logindira Recei urszula: 07/31 1232 First Scree n: Karuna Rodriguez ret, CT Speci men: Norma ruiz Pap - Image d, Cervi x STATE MENT OF ADEQU ACY: Satis facto ry for evalu ation Trans forma tion zone compo nent prese nt ----- ----- ----- ----- ----- ----- ----- ----- ----- ----- ----- ----- ----- ----- ----- ----- ----- ---- FINAL DIAGN OSIS: Negat ruchi for Intra epith elial Lesio n or Karolina huynh (NIL) . Shift in yolanda sugge stive of bacte rial vagin osis. Elect evan gabriel d by Karuna Rodriguez ret, CT on 2023 at 6:59 AM ----- ----- ----- ----- ----- ----- ----- ----- ----- ----- ----- ----- ----- ----- ----- ----- ----- ---- HPV RESUL TS: HPV mRNA E6/E7 : No HPV mRNA Detec pierre NOTE: This high risk HPV mRNA assay detec ts fourt een high- risk HPV types (16, 18, 31, 33, 35, 39, 45, 51, 52, 56, 58, 59, 66, 68) witho ut diffe renti ation . COMME NT: This speci men was revie wed by a Cytot echno logis t and/o r Patho logis t (as indic ated in this repor t) after evalu ation using the Thinp rep Imagi ng Syste m. CLINI KIMBERLEE INFOR MATIO N: Menst rual Statu s: LMP (if appli cable ): Clini kimberlee Histo ry/Pr eviou s Pap: Type of Neopl paz (if appli cable ): Signi fican t Clini kimberlee Findi ngs: Other Histo ry: Hormo shana (if appli cable ): PAP EDUCA INDIO L NOTE: The Pap Test is a scree sara test with an inher ent false negat ruchi rate. Liqui d-bas ed sampl ing may decre ase, but will not elimi franc, false negat ruchi resul ts. A negat ruchi resul t does not precl ude the prese nce and/o r devel opmen t of disea se, since the prese nce of abnor mal cells in the sampl e depen ds on the locat ion of the lesio n and sampl ing techn ique. Tigist nued regul ar scree sara is the best metho d of cance r preve ntion . If repor pierre cytol ogic findi ng do not corre late with physi kimberlee and/o r histo rical findi ngs, furth er inves tigat ion is recom everett d, as clini linda florez nted. Not Available [facility] (Lab) [address], [place], [address], 08/05/2024 08:02:46 Result Notes None recorded. 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 2 17:53:13 Ultrason ography Completed 201204/09/2022 Antenata l screenin g for malforma tion using ultrason ics;Prac simba ID: 0001 Margaret Rosario [facility] 2 17:53:13 Antenata l screenin g Completed 201204/09/2022 Antenata l screenin g for malforma tion using ultrason ics;Prac simba ID: 0001 [facility] 17:53:13 Congenit al malforma tion [id number] Completed 201204/09/2022 Antenata l screenin g for malforma tion using ultrason ics;Prac simba ID: 0001 [facility] 17:53:13 Delivery normal [id number] Completed 201204/09/2022 Normal delivery ;Practic e ID: 0001 [facility] 17:53:13 Single live [id number] Completed 201204/09/2022 Mother with single liveborn ;Practic e ID: 0001 Margaret miller, [facility] 2 17:53:13 Postpart um care Completed 201204/09/2022 Postpart um follow-u p;Huiti ce ID: 0001 Margaret Rosario [facility] 2 17:53:13 Speciali zed medical examinat ion Completed 201204/09/2022 Routine gynecolo gical examinat ion;Prac simba ID: 0001 Margaret miller, [facility] 2 17:53:13 Screenin g for malignan t neoplasm of cervix Completed 201204/09/2022 Pap Smear;Pr actice ID: 0001 [facility]13 Insertio n of intraute rine contrace ptive device Completed 201204/09/2022 INSERTIO N OF IUD;Prac simba ID: 0001 Margaret Rosario [facility] 2 17:53:13 Pregnanc y test negative [id number] Completed 201204/09/2022 Negative Pregnanc y Test;Pra ctice ID: 0001 Margaret Rosario [facility] 2 17:53:13 Family planning surveill ance Completed 201204/09/2022 Contrace ptive surveill ance, unspecif ied;Prac simba ID: 0001 Margaret Rosario [facility] 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 2 17:53:13 Removal of intraute rine device Completed 201604/09/2022 Encounte r for removal of intraute rine contrace ptive device;P ractice ID: 0001 Margaret Rosario [facility] 2 17:53:13 Low risk human papillom avirus deoxyrib onucleic acid detected in specimen from cervix [id number] Completed 201604/09/2022 Cervical low risk HPV DNA test positive ;Recorde d Elsewher e: No Locat ion: Jama[facility] donato [facility] S ource: EHR Tube Carrier astrid: N Practi ce ID: 0001 Ty lable Time: 04:45:00 PM Margaret Rsoario [facility] 2 17:53:[address] Concept Completed 201704/09/2022 Encntr for general adult medical exam w/o abnormal findings ;Recorde d Elsewher e: No Locat ion: [facility] S ource: EHR Tube Carrier astrid: N Practi ce ID: 0001 Ty lable Time: 04:15:00 PM Margaret Rosario [facility] 2 17:53:13 Pregnanc y test positive [id number] Completed 201204/09/2022 Pregnanc y examinat ion or test, positive result;R ecorded Elsewher e: No Locat ion: [facility] S ource: EHR Tube Carrier astrid: N Xavier ce ID: 0001 Ty lable Time: 11:00:00 AM Margaret Rosario [facility] 2 17:53:13 Low grade squamous intraepi thelial lesion on cervical Papanico laou smear [id number] 105 Completed 201604/09/2022 Low grade intrepit h lesion cyto smr crvx (LGSIL); Recorded Elsewher e: No Locat ion: [facility] S ource: EHR Tube Carrier astrid: N Xavier ce ID: 0001 Ty lable Time: 04:45:00 PM [facility] 2 17:53:13 Clinical finding Completed 201804/09/2022 Sexual dysfunct ion, unspecif ied;Yovanny rded Elsewher e: No Locat ion: [facility] S ource: EHR Tube Carrier astrid: N Xavier ce ID: 0001 Ty lable Time: 08:30:00 AM Margaret Rosario [facility] 2 17:53:13 Atypical squamous cells of undeterm ined signific ance on cervical Papanico laou smear [id number] Completed 201704/09/2022 Atyp squam cell of undet signfc cyto smr crvx (ASC-US) ;Recorde d Elsewher e: No Locat ion: [facility] S ource: EHR Tube Carrier astrid: N Xavier ce ID: 0001 Ty lable Time: 04:15:00 PM Margaret Rosario [facility] 2 17:53:13 Body mass index 30+ - obesity 582946691 Completed 201604/09/2022 Body mass index (BMI) 33.0-33. 9, adult;Re corded Elsewher e: No Locat ion: [facility] S ource: EHR Tube Carrier astrid: N Practi ce ID: 0001 Ty lable Time: 06:00:00 PM Margaret [facility] 2 17:53:13 Atypical squamous cells on cervical Papanico laou smear cannot exclude high grade squamous intraepi thelial lesion [id number] Completed 201604/09/2022 Atyp squam cell not excl hi grd intrepit h lesn cyto smr crvx;Rec orded Elsewher e: No Locat ion: [facility] S ource: EHR Tube Carrier astrid: N Practi ce ID: 0001 Ty lable Time: 04:45:00 PM [facility] 2 17:53:13 Amenorrh ea [id number] Completed 201204/09/2022 AMENORRH EA;Pract ice ID: [address] [facility] 2 17:53:13 Problem Notes None recorded. Procedures Surgical History Date Name Laterality Status Provider Name and Address Organization Details Recorded Time Colposcopy completed [facility] 04/10/2022 16:24:07 tonsilectomy/ad enoids completed [facility] 04/10/2022 16:24:07 Imaging Results None recorded. Procedure Notes None recorded. Medical Equipment None Reported. Allergies No known drug allergies Medications Name Sig Start Date Stop Date Status Note LastModified by Organization Details LastModified Time buspirone 5 mg tablet TAKE 1 TABLET BY MOUTH TWICE DAILY 04/10 completed Not Available Not Available Not Available metronida zole 0.75 % (37.5 mg/5 gram) vaginal gel INSERT ONE APPLICAT ORFUL VAGINALL Y AT BEDTIME FOR 5 NIGHTS 07/29 completed Not Available Not Available Not Available amoxicill in 875 mg tablet TAKE 1 TABLET BY MOUTH EVERY 12 HOURS FOR 10 DAYS 07/29 completed Not Available Not Available Not Available Celexa 20 mg tablet take 1 tablet by oral route every day 06/01 completed Prescrib ed Elsewher e: Yes Loca tion: Jamaal donato [facility] odify By: tristan hay DateTime : 02/16/20 13 11:00:00 AM Not Available Not Available Not Available Flagyl 500 mg tablet Take 1 tablet every 12 hours by oral route for 7 days. 04/10 completed Not Available Not Available Not Available neomycin- polymyxin -dexameth 3.5 mg/mL-10, 000 unit/mL-0 .1% eye drops 07/29 completed Not Available Not Available Not Available naproxen 500 mg tablet 07/29 completed Not Available Not Available Not Available iron 18 mg tablet 08/22 completed Prescrib ed Elsewher e: Yes Loca tion: [facility] odify By: elaine kernuntmaurice DateTime : 06/02/20 19 08:30:00 AM Not Available Not Available Not Available NuvaRing 0.12 mg-0.015 mg/24 hr vaginal INSERT 1 RING(S) VAGINALL Y EVERY MONTH DIRECTED 04/10 completed Not Available Not Available Not Available Zithromax 500 mg tablet take 2 tablet (1000MG) by oral route once 09/22 completed Prescrib ed Elsewher e: No Locat ion: [facility] odify By: shagufta Encount er DateTime : 02/18/20 13 03:26:04 PM Not Available Not Available Not Available escitalop tete 10 mg tablet Take 1 tablet every day by oral route. 04/10 completed Not Available Not Available Not Available escitalop tete 20 mg tablet TAKE 1 TABLET BY MOUTH EVERY DAY 07/29 completed Not Available Not Available Not Available iron ER 325 mg (65 mg iron) capsule,e xtended release 11/08 completed Prescrib ed Elsewher e: Yes Loca tion: [facility] odify By: mayuri kernuntmaurice DateTime : 09/22/20 13 11:00:00 AM Not Available Not Available Not Available escitalop tete 5 mg/5 mL oral solution take 10 millilit er by oral route every day 04/10 completed Prescrib ed Elsewher e: Yes Loca tion: Jamaal donato [facility] odify By: tristan hay DateTime : 06/01/20 18 04:15:00 PM Not Available Not Available Not Available melatonin 07/29 completed Not Available Not Available Not Available Vitamin D 07/29 completed Not Available Not Available Not Available Vitamin D3 10 mcg (400 unit) capsule 08/22 completed Prescrib ed Elsewher e: Yes Loca tion: Jama[facility] donato [facility] odify By: elaine Donato ncounter DateTime : 06/02/20 08:30:00 AM Not Available Not Available Not Available Body, Hair, Skin and Nails 04/10 completed Not Available Not Available Not Available Fish Oil 360 mg-1,200 mg capsule 08/22 completed Prescrib ed Elsewher e: Yes Loca tion: Jama[facility] donato [facility] odify By: elaine kernunter DateTime : 06/02/20 08:30:00 AM Not Available Not Available Not Available B12 04/10 completed Not Available Not Available Not Available Corvite FE 125 mg iron-25 mg iron-1 mg tablet take 1 tablet by oral route every day 06/01 completed Prescrib ed Elsewher e: Yes Loca tion: Jama[facility] donato [facility] odify By: tristan hay DateTime : 03/11/20 16 02:45:00 PM Not Available Not Available Not Available Fish Oil 100 mg-160 mg-1,000 mg capsule 06/01 completed Prescrib ed Elsewher e: Yes Loca tion: Jamaal donato [facility] odify By: tristan hay DateTime : 03/11/20 16 02:45:00 PM Not Available Not Available Not Available Nissa Allergy 04/10 completed Not Available Not Available Not Available DHA 200 mg capsule 03/11 completed Prescrib ed Elsewher e: Yes Loca tion: [facility] donato [facility] odify By: matty middleton DateTime : 02/16/20 13 11:00:00 AM Not Available Not Available Not Available Women's One Daily 18 mg iron-400 mcg-500 mg Ca tablet active Prescrib ed Elsewher e: Yes Loca tion: Jama[facility] donato [facility] M odify By: [email or web address] Golden r DateTime : 03/11/20 16 02:45:00 PM Not Available Not Available Not Available Blisovi Fe 12/12 (28) 1 mg-20 mcg (21)/75 mg (7) tablet Take 1 tablet every day by oral route. 10/11 completed Not Available Not Available Not Available Vitals Date Recorded Body height Body mass index (BMI) Body weight Systolic blood pressure Diastolic blood pressure Provider Name and Address Organization Details Last Updated DateTime 04/10/2022 167.64 cm 34.1 kg/m2 01753.71 g 110 mm[Hg] 70 mm[Hg] Margaret Rosario [facility] 2 16:23:37 Date Recorded Body height Body mass index (BMI) Body weight Systolic blood pressure Diastolic blood pressure Provider Name and Address Organization Details Last Updated DateTime 07/29/2024 167.64 cm 33 kg/m2 72328 g 118 mm[Hg] 78 mm[Hg] Cynthia Driver [facility] 4 15:47:36 Date Recorded Body height Body mass index (BMI) Body weight Systolic blood pressure Diastolic blood pressure Provider Name and Address Organization Details Last Updated DateTime 10/11/2020 167.64 cm 33.2 kg/m2 01250.03 g 114 mm[Hg] 75 mm[Hg] Alicia Almeida [facility] 0 13:50:23 Social History Question Answer Notes LastModified by Organizat ion Details LastModified Time Do You Have An Advance Directive? No Information not available 04/10/2022 What Is Your Level Of Alcohol Consumption? Occasional Information not available 04/10/2022 How Many Years Have You Consumed Alcohol? 18 Information not available 07/29/2024 Are You Blind Or Do You Have Difficulty Seeing? No Information not available 04/10/2022 What Is Your Level Of Caffeine Consumption? Moderate Information not available 04/10/2022 How Much Tobacco Do You Chew? None Information not available 04/10/2022 In The 14 Days Before Symptom Onset, Have You Had Close Contact With A Laboratory-confir med COVID-19 While That Case Was Ill? No Information not available 04/10/2022 In The 14 Days Before Symptom Onset, Have You Had Close Contact With A Person Who Is Under Investigation For COVID-19 While That Person Was Ill? No Information not available 04/10/2022 Have You Been To An Area Known To Be High Risk For COVID-19? No Information not available 04/10/2022 Are You Deaf Or Do You Have Serious Difficulty Hearing? No Information not available 04/10/2022 What Type Of Diet Are You Following? REGULAR Information not available 04/10/2022 What Is The Highest Grade Or Level Of School You Have Completed Or The Highest Degree You Have Received? 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 Yes Information not available 04/10/2022 Do You Use Protection During Sex? No Information not available 07/29/2024 Do You Use Your Seat Belt Or Car Seat Routinely? Yes Information not available 04/10/2022 Do You Have Smoke And Carbon Monoxide Detectors In Your Home? Yes Information not available 04/10/2022 How Much Tobacco Do You Smoke? No Information not available 04/10/2022 Do You Feel Stressed (tense, Restless, Nervous, Or Anxious, Or Unable To Sleep At Night)? [id number] Information not available 04/10/2022 Do You Use Any Illicit Or Recreational Drugs? No Information not available 04/10/2022 Do You Use Sunscreen Routinely? Yes Information not available 07/29/2024 Have You Used IV Drugs? No Information not available 04/10/2022 Sex: Unknown Functional Status Question Answer Note LastModified by Organizat ion Details LastModified Time Are you able to walk? YESWOREST Information not available 04/10/2022 What is your exercise level? Occasional Information not available 04/10/2022 Mental Status None recorded. Family History Relationship Description Onset Age of this Age Resolved Age Notes LastModified by Organization Details LastModified Time Maternal Grandmother Heart disease Not available 2021 16:23:42 Maternal Grandmother Malignant tumor of lung Not available 2021 16:23:42 Mother Depressive disorder Not available 2021 16:23:42 Mother Disorder of thyroid gland Not available 2021 16:23:42 Father Depressive disorder Not available 2021 16:23:42 Maternal Grandfather Heart disease Not available 2021 16:23:42 Sister Depressive disorder Not available 2021 16:23:42 Notes:Mother: Thyroid diseas e Medical History Condition Response Anxiety Disorder Y Allergies (Food, seasonal, environmental ) Y Headaches Y Depression/ depression Y Gynecological History Statement/Question Response Flow Moderate Date of LMP 07/07/2024 N Was last menstrual period normal Y STIs/STDs N Date of control 01/04/2022 Unknown Desired Control Method Partner Vas ectomy On BCP's at Conception? N HPV Vaccine Y Duration of Flow (days) 5 Current Control Method None Age at First Child 28 Frequency of Cycle (Q days) 30 Sexually Active? Y Menses Monthly Y Age of first menstrual cycle 13 Date of Last Pap Smear Sexual Problems? N LMP Approximate N 04/23/2019 Obstetrics History GPAL:G 1 P 0 0 0 1 Type Value Living 1 Total 1 Past Encounters Encounter ID Performer Location Encounter Start Date Encounter Closed Date Diagnosis/Indication Diagnosis SNOMED-CT Code Diagnosis ICD10 Code Diagnosis Note [id number] Mary Ann Inman [facility] [address] [address] 10/11/2020 13:42:24 10/11/2020 14:30:43 Gynecologic examination 78957692 Z01.419 Take Calcium with Vitamin D 1200mg daily if not receiving in daily diet. It is strongly advised to have an annual flu shot and up can obtain at most pharmacies . If you have not had a TDap shot in the last 10 years you should obtain one as well. Discussed with patient & provided with informatio n regarding Gardisil vaccine to prevent the 4 strains for HPV that cause cervical cancer if under age 26. Encourage safe sexual practices, to use condoms and limit partners if not already in a monogamous relationsh ip. Do monthly self breast exams. Have mammogram yearly or every other year depending on family history. BRCA testing is now available for patients with strong genetic history of female cancer. If interested contact the office. Engage in daily exercise of low impact aerobic exercise 45-60 minutes 4-5 times weekly. Avoid tobacco and illicit drugs as well as using moderation with alcohol intake less than 1-2 8 oz beverages daily. This lifestyle behavior pattern will lead to less health conditions and longer life span. If BMI greater than 25 weight watchers or dietary consult advised. Patient received above instructio ns, and questions have been answered. If you have any questions please call or respond to this email. Patient was made aware of the patient portal and may obtain a paper copy of today's plan if desired. -Pap and HPV done today -No issues with Nuva Ring, patient wishes to continue, refills sent for 1 year -RTC in 1 year or PRN Contracept ion care management [id number] Z30.9 [id number] Mary Ann Inman [facility] [address] [address] 04/10/2022 16:12:52 04/10/2022 17:00:13 Gynecologic examination [id number] Z01.419 Take Calcium with Vitamin D 1200mg daily if not receiving in daily diet. It is strongly advised to have an annual flu shot and up can obtain at most pharmacies . If you have not had a TDap shot in the last 10 years you should obtain one as well. Discussed with patient & provided with informatio n regarding Gardisil vaccine to prevent the 4 strains for HPV that cause cervical cancer if under age 26. Encourage safe sexual practices, to use condoms and limit partners if not already in a monogamous relationsh ip. Do monthly self breast exams. Have mammogram yearly or every other year depending on family history. BRCA testing is now available for patients with strong genetic history of female cancer. If interested contact the office. Engage in daily exercise of low impact aerobic exercise 45-60 minutes 4-5 times weekly. Avoid tobacco and illicit drugs as well as using moderation with alcohol intake less than 1-2 8 oz beverages daily. This lifestyle behavior pattern will lead to less health conditions and longer life span. If BMI greater than 25 weight watchers or dietary consult advised. Patient received above instructio ns, and questions have been answered. If you have any questions please call or respond to this email. Patient was made aware of the patient portal and may obtain a paper copy of today's plan if desired. Pap/hpv sentSTD Screen declinedGe netic Screen discussedC olon Screen naDexa Screen naRoutine Labs Ordered will return fastingMam mo na Adult heal th examination [id number] Z00.00 Return for fasting blood labs [id number] LUPE CULLEN MD [place] [address] [address] 07/29/2024 15:41:08 07/29/2024 16:16:06 Gynecologic examination [id number] Z01.419 [facility] woman care- Cervical cancer screening: Pap smear obtained today, will follow up on the results with the patient as they become available- Breast cancer screening: mammogram not indicated- Colon cancer screening: does not qualify- HPV immunizati on: received- STD testing: declined- hereditary cancer screening: does not qualify for testing Health Concerns Section Related Observation LastModified by Organization Detai ls LastModified Time None Recorded Concern Status LastModified by Organization Details LastModified Time None Recorded Advance Directives Directive N: Payers Encounter Date Sequence Insurance Name Policy Number Policy Baca Covered Member ID Baca Member ID Guarantor Name 10/11/2020 1 [facility] [id number] Andressa Pace [id number] Andressa Pace 04/10/[address] [id number] Andressa Pace [id number] Andressa Pace 07/29/[address] [place] [id number] Andressa Pace [id number] Andressa Pace Notes Date Note Type Note Provider Name and Address Organization Details Recorded Time 10/11/2020 text/html Annual GYNReport ed bypatient.History:no gynecologic complaints Menstrual cycle:Patient uses Nuva Ring continously and does not get a period Urinary symptoms:No hematuria; No incontinence Vulva:No genital lesion Vagina:Normal vaginal discharge Breast:No breast pain; No breast lump; No nipple discharge Current Contraception:Satisf ied with current contraception; Monogamous relationship Sexual complaints:No sexual complaints; No pain during intercourse; Normal libido Menopausal Symptoms:No menopausal symptoms; Normal vaginal lubrication Psychological symptoms:No depression; No anxiety; No PMDD Preventive measures:Encourage self breast examination; Encourage regular exercise; Encourage no tobacco use Mary Ann Inman [facility] [address], [place], [address], [facility] 10/11/2020 14:22:39 04/10/2022 text/html Annual GYNReport ed bypatient.History:no gynecologic complaints Menstrual cycle:Normal menses Urinary symptoms:No hematuria; No incontinence Vulva:No genital lesion Vagina:Normal vaginal discharge Breast:No breast pain; No breast lump; No nipple discharge Current Contraception:Satisf ied with current contraception; Monogamous relationship; Condoms; Partner had vasectomy (Spouse planning on this procedure soon.) Sexual complaints:No sexual complaints; No pain during intercourse; Normal libido Menopausal Symptoms:No menopausal symptoms; Normal vaginal lubrication Psychological symptoms:No depression; No anxiety; No PMDD Preventive measures:Encourage self breast examination; Encourage regular exercise; Encourage no tobacco use; Encourage regular mammograms starting age 40; Followed with Q3 year pap smear and high risk HPV typing Mary Ann Inman [facility] [address], [place], [address], [facility] 04/10/2022 16:42:35 07/29/2024 text/html Presents today f or her annual well-woman exam. Denies abnormal vaginal discharge. She is sexually active and denies dyspareunia. She is using partner vasectomy for contraception, and she states that she is satisfied with this method. She has not noticed any changes or masses in her breasts. LMP 07/07/24. Periods are Q30 days and last 5 days. Flow is moderate, no intermenstrual spotting. LUPE CULLEN MD [address], [place], [address], [facility] 07/29/2024 16:13:39 OBGyn Episode Ob Episode Information Episode Created Date Number of Fetuses Patient Bloodtype Patient rh Status Prepregnancy Weight lbs Domestic Partner Domestic Partner Phone Father Name [employer] Status 04/10/20 22 1 CLOSED Fetus Data First Name Last Name Admitted to NICU Weight (g) Sex Living Outcome Pediatric Complications Fetus ID Race Codes Race Delivery Type F [id number] Vaginal Delivery Fab Calculation Initial Fab Date Initial Exam Date Initial Exam Provider Initial Ultrasound Date Last Menstrual Period Date Ultra Sound Weeks Gestation 0 Eighteen To Twenty Week Fab Update Ultra Sound Date Fundal Height At Umbil Quickening Date Ultra Sound Latest Weeks Gestation Final Fab Confirmed By Final Fab Confirmed Date Final Fab Date Ultra Sound Latest Days Gestation 0 0 Menstrual History Last Menstrual Date Menses Monthly On Bcp Conception Prior Menses Frequency Hcg Plus Date Menarche Onset Age Delivery Information Delivery Date Delivery Type Labor Anesthesia Weeks Gestation Incision Type Labor Labor Length Hrs Delivered By Post Complications Tubal Sterilization Discharge Date Comments 3 Discharge Information Feeding Method Contraceptive Method Maternal HG B and HCT Levels
--- OUTSIDE RECORDS SUMMARY | 2025-01-29 11:23 | XMS_ITS | Clinical Summary ---
Author Organization [facility] Address [address] [place] [address] Phone Care Team Providers Care Wax Ball Knock Out Worker Name Role Phone Uzair Morales Primary Care Provider [phone] Social History Tobacco Use Types Packs/Day Years Used Date Smoking Tobacco: Never Assessed Comments Unknown Sex and Gender Information Value Date Recorded Sex Assigned at Not on file Legal Sex Female 11:06 PM CDT Gender Identity Not on file Sexual Orientation Not on file Plan of Treatment Health Maintenance Due Date Last Done Comments Hepatitis C Virus (HCV) Screening 1985 Hepatitis B Immunization (1 of 3 - 19+ 3-dose series) 2004 Pap Smear 2006 Cervical Cancer Screening (CCS) 2015 HPV/Cotest 2015 Influenza Immunization (#1) 2024 08/23/2018 SARS-COV-2 Immunization ( season) 2024 12/12/2021, 03/15/2021, 02/15/2021 Respiratory Syncytial Virus (RSV) Immunization (Adult) (1 - 1-dose 75+ series) 2060 DTaP/Tdap/Td Immunization Discontinued 2012, 11/13/2010 TdaP Immunization Completed 11/23/2012, 11/13/2010 Meningococcal Immunization (ACWY) Aged Out No longer eligible based on patient's age to complete this topic Pneumococcal Immunization Combined Aged Out No longer eligible based on patient's age to complete this topic Rotavirus Immunization Aged Out No lo nger eligible based on patient's age to complete this topic Care Teams Wax Ball Knock Out Worker Relationship Specialty Start Date End Date Uzair Morales, [facility] [address] [place] [address] PCP - General Physician Social Media Coordinator 01/24/21
--- OUTSIDE RECORDS SUMMARY | 2025-01-29 11:24 | XMS_ITS | Clinical Summary ---
Author Organization [facility] [address] Address [address] [place] [address] Care Team Providers Care Vice President Of Brand Management Name Role Phone Uzair Morales Primary Care Provider [phone] Allergies No known active allergies Medications multivitamin [...] cyto smr crvx (ASC-US);Recorded Elsewhere: No Location: [facility] Source: EHR Chronic: N Practice ID: [id number] Billable Time: 04:15:00 PM Low-risk human papillomaviru s (HPV) DNA detected in cervical specimen 11/10/2017 Overview (06/02/2024): Cervical low risk HPV DNA test positive;Recorded Elsewhere: No Location: [facility] Source: EHR Chronic: N Practice ID: [id number] Billable Time: 04:45:00 PM Obesity with body mass index 30 or greater 04/01 Overview (06/02/2024): Body mass index (BMI) 33.0-33.9, adult;Recorded Elsewhere: No Location: [facility] Source: EHR Chronic: N Practice ID: [id number] Billable Time: 06:00:00 PM Chronic depression 09/22/2016 Delivery normal 08/10/2013 Overview (06/02/2024): Normal delivery;Practice ID: [id number] Congenital malformation 04/07/2013 Overview (06/02/2024): screening for malformation using ultrasonics;Practice ID: [id number] Amenorrhea 02/15/2013 Overview (06/02/2024): AMENORRHEA;Practice ID: [id number] Surgical History Surgery Date Site/Laterality Comments TONSILLECTOMY WISDOM TOOTH EXTRACTION Medical History Medical History Date Comments Depression Family History Medical History Relation Name Comments Arthritis Other Cancer Other Clotting disorder Other Heart disease Other Hypertension Other Mental illness Other Relation Name Status Comments Other Social History Tobacco Use Types Packs/Day Years [...] on file Legal Sex Female 2:19 PM [employer] Gender Identity Not on file Sexual Orientation Not on file Obstetrics History Last Filed Vital Signs Vital Sign Reading [...] 04/12/2024 6:47 PM CDT Plan of Treatment Health Maintenance Due Date Last Done Comments Cervical Cancer Screening 1985 Depression Screening 1985 Hepatitis C Screening 1985 Varicella Vaccines (1 of 2 - 13+ 2-dose series) 1998 Hepatitis B Screening 2003 Regular Well Visit/Exam 18-64 2003 DTaP/Tdap/Td Vaccine (3 - Td or Tdap) 11/23/2022 11/23/2012, 11/13/2010 Covid-19 Vaccine (3 - 2023-2 5 season) 2024 03/15/2021, 02/15/2021 Influenza Vaccine (#1) 2024 08/23/2018 HPV Vaccines Aged Out No longer eligi ble based on patient's age to complete this topic Pneumococcal vaccine <65 Aged Out No longer eligible based on patient's age to complete this topic Insurance ([place]) [id number] CHOICE PLUS [facility] CHOICE PLUS Member Subscriber Plan / Payer (Ef fective 2021-Present) Name:Andressa Roa Relation to Subscriber:Self Name:Andressa Roa Payer ID:[id number] (NAIC) Type:[facility] HMO/PPO Address: [place] [id number] [facility] CHOICE PLUS Care Teams Vice President Of Brand Management Relationship Specialty Start Date End Date Uzair Morales PA [address] [place] [address] PCP - General 01/10/19
[2025-01-29 11:25] VITALS: BP 118/85; PULSE 55; RESP 16; TEMP 36.4; O2SAT 100
[2025-01-29 11:43] LABS: EDSTREPNEGPOS1 Negative (Negative)
--- NOTE | 2025-01-29 12:31 | ED.GENADULT ---
HPI - General Adult General Chief complaint: Upper Respiratory Infection Stated complaint: throat Source: patient Mode of arrival: ambulatory Limitations: no limitations History of Present Illness HPI narrative: Pt presents for evaluation of sore throat. Symptom onset one week ago. She initially thought her symptoms were due to mouth being dry from influenza that she had at the end of December. Symptoms have persisted. She denies any fever, chills, nausea vomiting, cough, or SOB. No recent sick contacts following her bout with influenza. She does not smoke. She has a history of strep pharyngitis and this feels similar Related Data Home Medications ?Medication ?Instructions ?Recorded ?Confirmed ?Last Taken ?Type escitalopram oxalate 20 mg tablet mg 01/29/25 Unknown History Allergies Allergy/AdvReac Type Severity Reaction Status Date / Time No Known Allergies Allergy Verified 01/29/25 11:31 Review of Systems Review of Systems: CONSTITUTIONAL: Denies fever, chills, or sweats. EYES: Denies visual changes, redness, or discharge. ENT: Reports sore throat. Denies rhinorrhea, congestion, or otalgia. CARDIOVASCULAR: Denies chest pain, palpitations, or edema. RESPIRATORY: Denies cough or dyspnea. GASTROINTESTINAL: Denies abdominal pain, nausea, vomiting, or diarrhea. GENITOURINARY: Denies dysuria or hematuria. SKIN: Denies rash or itching. MUSCULOSKELETAL: Denies back pain, joint pain, or myalgia. NEUROLOGIC: Denies headache, numbness, dizziness, or weakness. PSYCHIATRIC: Denies anxiety or depression. PMFSH Past Medical History Medical History No pertinent past medical history Surgical History Surgical History No pertinent past surgical history Family History Family History Mother Medical history non-contributory Social History Social History Substance use: never Gender identity (if verbalized by the patient): Female Spiritual care concerns: No Exam Narrative: GENERAL: Well-appearing, well-nourished, and in no acute distress. HEAD: Normocephalic, atraumatic. EYES: PERRLA and EOMI. ENT: Nares clear, no rhinorrhea or epistaxis. Mucous membranes moist. There is posterior pharyngeal erythema without exudate. Uvula is midline. Bilateral TMs pearly gonzales nonbulging NECK: Supple. No adenopathy or masses. No carotid bruits or JVD CHEST: Clear to auscultation. No respiratory distress. No wheezes rales or rhonchi HEART: Regular rate and rhythm. No murmur heard. Normal peripheral pulses. ABDOMEN: Soft, nontender, nondistended, normal active bowel sounds. EXTREMITIES: Normal range of motion. No edema. SKIN: Warm, dry, no rash. NEURO: No focal deficits. Alert and oriented x3. PSYCH: Normal mood and affect. Course Course Emergency Course: This is a 39-year-old female who presented for evaluation of sore throat. Rapid strep negative. Will send throat culture. Patient requested antibiotics because her current symptoms are consistent with those previously experienced with strep throat. Will DC with amoxicillin. Increase hydration. [id number] agents for symptom management. Follow up with primary provider. Go to the ER for worsening symptoms. Patient in agreement with plan of care. Level of Care: Express Care Visit Vital Signs Vital signs: Vital Signs Temperature 36.4 C L 01/29/25 11: Pulse Rate 55 L 01/29/25 11:25 Respiratory Rate 16 01/29/25 11:25 Blood Pressure 118/85 01/29/25 11:25 Pulse Oximetry 100 01/29/25 11:25 Oxygen Delivery Room Air 01/29/25 11:25 Temperature 36.4 C L 01/29/25 11:25 Pulse Rate 55 L 01/29/25 11:25 Respiratory Rate 16 01/29/25 11:25 Blood Pressure 118/85 01/29/25 11:25 Pulse Oximetry 100 01/29/25 11:25 Oxygen Delivery Room Air 01/29/25 11:25 Medical Decision Making Vital Signs Vital Signs: Vital Signs Temperature 36.4 C L 01/29/25 11: Pulse Rate 55 L 01/29/25 11:25 Respiratory Rate 16 01/29/25 11:25 Blood Pressure 118/85 01/29/25 11:25 Pulse Oximetry 100 01/29/25 11:25 Oxygen Delivery Room Air 01/29/25 11:25 Temperature 36.4 C L 01/29/25 11:25 Pulse Rate 55 L 01/29/25 11:25 Respiratory Rate 16 01/29/25 11:25 Blood Pressure 118/85 01/29/25 11:25 Pulse Oximetry 100 01/29/25 11:25 Oxygen Delivery Room Air 01/29/25 11:25 Lab Data Labs: Lab Results 01/29/25 Range/Units 11:32 POC Grp A Strep Screen Negative (Negative) Discharge Plan Discharge Clinical Impression: Pharyngitis Patient Disposition: Home, Self-Care Condition: Stable Instructions: Antibiotic Form, Pharyngitis (ED) Patient Language: Azeri Prescriptions: New amoxicillin 500 mg tablet 500 mg PO Q12H Qty: 20 0RF No Action escitalopram oxalate 20 mg tablet Follow-up/Referrals: Andrew,CHONG Mustafa [Primary Care Provider] - Time of Disposition: 12:40
== END 2025-01-29 12:45 | disposition home or self-care (01) ==
PROVIDERS: Emergency Provider Nurse Practitioner; PCP Physician Assistant
DX: J02.9 Acute pharyngitis, unspecified (principal)
CPT/HCPCS: 87081; 87880; 99213; G0463